=== PATIENT | male | born 1965 | race Caucasian/White ===

== ENCOUNTER 2021-04-03 10:00 | Outpatient (RCR) | payer OTHER, SELFPAY ==
--- NOTE | 2021-02-08 16:35 | PTOPEVAL ---
INITIAL PHYSICAL THERAPY EVALUATION and PLAN OF CARE Thank you for referring Jacob Butler to [facility].? Baljeet is scheduled to be seen for physical therapy? 2x/week for 4 weeks. Please review, sign, date and return this plan of care SHAHEED. I agree with and certify that the following plan of care is medically necessary. Referring Physician Date Admitting Provider: Attending Provider: Grupo Jc MD Referring Provider: *PT Outpatient Evaluation Start: 02/08/21 14:48 Freq: Status: Active Protocol: Document 02/08/21 14:48 TOMÁS (Rec: 02/08/21 16:32 TOMÁS [id number]) Therapy Assessment Status Assessment Status Assessment Status Evaluation Outpatient Past Medical History Past Medical History Source of Past Medical History Patient Cardiovascular History Hx Hypercholesterolemia Yes Hx Hypertension Yes Gastrointestinal History Hx Appendectomy Yes: 1986 Hx Pancreatitis Yes: 2012 Musculoskeletal History Hx Fractures Yes: L foot, L ribs - ORIF 2015, L clavicle-ORIF 2015, L finger fx Hx Joint Replacement Yes: L TKA 2018, revision 2020 Hx Orthopedic Surgery Yes: L ACL 1995 , bilat arthroscopies 1996 HEENT History Hx Ear Surgery Yes: R stapedectomy 1985,2013 Evaluation Information Problem Diagnosis L TKA 01/26/21 Onset 01/26/21 Subjective Information Initially May - Query Text:As Reported By Patient/ struggled with it - lots of Family pain and swelling - did PT, etc. Constant pain - got pinching etc. Lots of diagnostic intervention - unable to find source of pain. For revision - increased thickness of the software able to keep hardware - metal components. Feeling much better already - resumed exercises already. Did put on a knee brace that he had from the past. Bad day yesterday - didn't use as much ice - when he did - knee felt better . Changed dressing a few days ago. 40 ruperto. Diagnostic Tests X-Rays For This Problem Yes Other Tests For This Problem Yes Previous Treatments Previous Treatments For This Problem PT following initially TKA Prior Level of Function Activity Level (Last 3 Months) Occupation
--- NOTE | 2021-03-06 15:41 | PCPTNOTE ---
03/06/21 PHYSICAL THERAPY PROGRESS REPORT The above patient has completed a total number of 7 treatment sessions for L TKA since 02/08/21. Summary of Progress: Jacob has improved in both his L LE strength and ROM since starting PT services. He continues to demonstrate decreased L strength compared to R. He has improved in LEFS as well as WOMAC. He reports 5/10 pain this date stating that he did more activity over the weekend. He reports 1-2/10 pain at the end of therapy session this date. Recommendations: Jacob continues to present with decreased/asymmetrical LE strength and would benefit from skilled PT to address these deficits and assist him in improving his functional mobility. Thank you for referring Jacob Butler to [facility].? The patient is scheduled to be seen for therapy? 2x/week for 2-3 weeks.? Please review, sign, date and return this plan of care SHAHEED. I agree with and certify that the above recommended change(s) to the plan of care are medically necessary. ? Referring Physician?Date Admitting Provider: Attending Provider: erika merlos Referring Provider:
--- NOTE | 2021-03-24 12:35 | PCPTNOTE ---
Patient called & cancelled scheduled appointment this date due to not feeling well following COVID injection.
--- NOTE | 2021-04-03 16:51 | PTOPEVAL ---
PHYSICAL THERAPY DISCHARGE SUMMARY Thank you for referring Jacob Butler to [facility].? Baljeet has been seen for a total of 14 visits. Goals have been met and he is ready for d/c from PT to HEP. I agree with and certify that the following plan of care is medically necessary. Referring Physician Date Admitting Provider: Attending Provider: Grupo Jc MD Referring Provider: Therapy Assessment Status Assessment Status Assessment Status Discharge Evaluation Information Problem Diagnosis L TKA 01/26/21 Subjective Information Baljeet reports L knee is doing Query Text:As Reported By Patient/ okay - but having L ITB Family tightness. Needs to be careful on ladders. Also having occasional swelling of L knee occurring - will ice it . Pain Assessment Self Report Pain Assessment Left Knee(s) Reported Pain Level 2 Pain Frequency Continuous Other Pain Description nagging pain Lowest Pain Intensity 1 Greatest Pain Intensity 4 Lower Extremity Range of Motion Knee Range of Motion Left Knee Flexion Range of Motion - Active 125 Knee Extension Range of Motion - Active 2 Query Text: Lower Extremity Muscle Strength Testing Hip Strength Left Hip Flexion Strength 5 Normal Hip Extension Strength 5 Normal Hip Abduction Strength 5 Normal Hip Medial Rotation Strength 5 Normal Hip Lateral Rotation Strength 5 Normal Knee Strength Left Knee Flexion Strength 5 Normal Knee Extension Strength 5 Normal Muscle Length Testing Muscle Length Testing Wing's Test Hip Muscle Length (R) Mild Tightness Left Hamstring Length -25 Query Text:(90 - 90 Position) Gastrocnemius Length (R) WFL,(L) WFL Palpation Assessment Palpation Palpation tenderness present laterally at joint line, discomfort and tightness with distal L ITB, around fibular head - especially anteriorly, poseriorly - lateral tightness present Good patellar mobility Balance Assessment Time Up Go (TUG) Assistive Devices None Comments 8.03 seconds 5 Time Sit to Stand Time in Seconds 12.09 5 Time Sit to Stand Comments hands across chest Query Text:Normative Data: If Greater Than 15 Seconds, 74% Increase Risk for Recurrent Falls Gait Assessment Gait Pattern Assessment Other Gait Observations no obvious gait deviations observed Stair
== END 2021-04-06 16:07 | disposition home or self-care (01) ==
LOC: ANHHIPT 10:00
PROVIDERS: PCP Family Medicine
DX: Z47.1 Aftercare following joint replacement surgery (principal); T84.84XS Pain due to internal orthopedic prosthetic devices, implants and grafts, sequela; Z96.652 Presence of left artificial knee joint
CPT/HCPCS: 97110; 97140; 97161

== ENCOUNTER 2021-06-21 10:00 | Outpatient (RCR) | payer OTHER, SELFPAY ==
--- NOTE | 2021-05-25 15:38 | OTOPEVAL ---
OCCUPATIONAL THERAPY INITIAL EVALUATION: 05/25/2021 Thank you for referring Jacob Butler to [facility].? The patient is scheduled to be seen for therapy? 2x/week for 4 weeks. Please review, sign, date and return this plan of care SHAHEED. I agree with and certify that the following plan of care is medically necessary. Referring Physician Date Attending Provider: BRENDON Ashby Referring Provider: Sulaiman Becker *OT Outpatient Evaluation Start: 05/17/21 12:31 Freq: Status: Active Protocol: Document 05/25/21 14:14 KJL (Rec: 05/25/21 15:37 KJL [id number]) Therapy Assessment Status Assessment Status Assessment Status Evaluation Evaluation Information Problem Diagnosis ORIF of L wrist 05/01/2021 Onset 04/15/2021 Cause Fall Additional Evaluation Detail Patient fell off a horse which resulted in a colles fracture on 04/15/2021. Patient underwent ORIF on 05/01/2021 of L UE wrist post distal radius fracture. Subjective Information Patient is 3 weeks post ORIF, Query Text:As Reported By Patient/ and has experienced Family difficulties with gripping/ grasping, pain with squeezing objects. 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 Quick DASH score: 75, on 2020 Prior Level of Function Activity Level (Last 3 Months) Occupation signs and graphics Hand Dominance Right Activity of Daily Living Ability Independent Indoor/Home Mobility Independent Community Mobility Independent Stairs Ability Independent Functional Cognition (Planning, Shopping Independent , Taking Medications) Cooking Yes Cleaning Yes Laundry Yes Shopping Yes Driving Yes Home Setting Home Type House Living Situation With Adult Child,With Spouse Pain Assessment Timing of Pain Assessment Timing of Pain Assessment Assessment Pain Scale Pain Scale Used Numeric (1 - 10) Self Report Pain Assessment Left Wrist(s) Reported Pain Level 2 Pain Description Aching,Burning,Numbness, Soreness Lowest Pain Intensity 2 Greatest Pain Intensity 9 Pain S
--- NOTE | 2021-06-26 14:35 | OTOPEVAL ---
OCCUPATIONAL THERAPY RE-EVALUATION AND DISCHARGE 06/26/21 Jacob presents today, 8 weeks post op, with excellent return of ROM and strength in the left UE. He has no functional limitations at this time and is independent with all HEPs. No further skilled OT indicated. Thank you for referring Jacob Butler to [facility]. Please review, sign, date and return this D/C Note SHAHEED. I agree with and certify that the following plan of care is medically necessary. Referring Physician Date Referring Provider: Sulaiman Becker *OT Outpatient Evaluation Start: 05/17/21 12:31 Evaluation Information Problem Diagnosis ORIF of L wrist 05/01/2021 Onset 04/15/2021 Cause Fall Additional Evaluation Detail Patient presents today, 8 weeks post op, for OT re- evaluation. Jacob has participated in 6 therapy sessions focused on improving the strength and ROM of the left forearm, wrist, and hand. Subjective Information Patient reports everything is Query Text:As Reported By Patient/ better . Notes no functional Family limitations other than some residual weakness for which he has HEP to continue. Pain Assessment Timing of Pain Assessment Timing of Pain Assessment Re-assessment Pain Scale Pain Scale Used Numeric (1 - 10) Self Report Pain Assessment Left Wrist(s) Reported Pain Level 0 Lowest Pain Intensity 0 Greatest Pain Intensity 1 Pain Score Pain Score 0: Self Report Upper Extremity Range of Motion Elbow/Forearm Range of Motion Left Forearm Supination - Active 85 Forearm Pronation - Active 90 Elbow/Forearm Range of Motion Comments Elbow flexion/extension is WNL Wrist Range of Motion Left Reason Not Measured WNL/Right Wrist Flexion - Active 65 Wrist Extension - Active 65 Wrist Radial Deviation - Active 20 Wrist Ulnar Deviation - Active 20 Wrist Range of Motion Limitations Pain Wrist Range of Motion Comments Measurements at the initial evaluation: flexion 50* extension 50* RD 15* UD 15* Finger Range of Motion Left Reason Not Measured WNL/Left Thumb Range of Motion Left Reason Not Measured WNL/Left Upper Extremity Muscle Strength Testing Elbow/Forearm Left Elbow Flexion Strength 5 Normal Elbow Extension Strength 5 Normal Forearm Pronation Strength 5 Normal Forearm Supination Strength 5 Normal Wrist Strength Left
== END 2021-06-28 14:42 | disposition home or self-care (01) ==
LOC: ANHOT 10:00
PROVIDERS: PCP Family Medicine
DX: Z47.89 Encounter for other orthopedic aftercare (principal); S52.532D Colles' fracture of left radius, subsequent encounter for closed fracture with routine healing; V80.010D Animal-rider injured by fall from or being thrown from horse in noncollision accident, subsequent encounter
CPT/HCPCS: 97110; 97165

== ENCOUNTER 2023-10-29 22:26 | Emergency (ER) | payer OTHER, SELFPAY ==
[2023-10-29] VITALS (7 sets, daily range): BP systolic 121–140; BP diastolic 78–91; PULSE 73–86; RESP 14–23; TEMP 36.5; O2SAT 96–100
--- NOTE | ~2023-10-29 | CT_ITS ---
Non-contrast Head CT History: Head trauma Technique: Axial non-contrast imaging of the brain was performed. Dose reduction technique was used on this scan by utilizing automated exposure control and iterative reconstruction technique. The dose -length product (DLP) was 605.33 mGy-cm. Findings: There is no evidence of intracranial hemorrhage, mass lesion, or acute infarct. Brain par enchyma appears normal. The ventricles and subarachnoid spaces are normal in size. The calvarium ap pears normal. The visualized paranasal sinuses and mastoid air cells are clear. Impression: No significant abnormality seen. Reviewed, dictated and finalized at [facility]. TING ENGINEER Impression: No significant abnormality seen.
--- NOTE | ~2023-10-29 | CT_ITS ---
Noncontrast CT scan of the cervical spine Technique: Multiple contiguous axial [address] images of the cervical spine were obtained and rec onstructed in 2D sagittal and coronal planes on the acquisition scanner. Dose reduction technique was used on this scan by utilizing automated exposure control, adjustment of the mA and/or kV according to patient size. The dose-length product (DLP) was 541.48 mGy-cm. Clinical History: Pain Findings: No acute fractures or dislocations. 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 There is probable mild left neural foraminal narrowing a t C6-C7. The intervertebral disc spaces are preserved. No prevertebral soft tissue swelling. Impression: No acute fracture or subluxation. 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 Minimal degenerative change, as above. Reviewed, dictated and finalized at [facility]. ICE ASSOCIATE Impression: No acute fracture or subluxation. 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 Minimal degenerative change, as above.
--- NOTE | 2023-10-29 22:39 | ECG_ITS ---
Measurements Intervals Mayer Rate: 78 P: 27 IL: 162 QRS: 5 QRSD: 94 T: 4 QT: 363 QTc: 416 Interpretive Statements SINUS RHYTHM MINIMAL VOLTAGE CRITERIA FOR LVH, CONSIDER NORMAL VARIANT [MEETS CRITERIA IN ONE OF: R(aVL), S(V1), R(V5), R(V5/V6)+S(V1)] ABNORMAL ECG NO PREVIOUS ECG AVAILABLE FOR COMPARISON Electronically Signed On 10-30-2023 10:38:04 RESIDENT ENGINEER by Chevy Sheikh M.D.
[2023-10-29 23:15] LABS: Basophils Percent Auto 0.6 % (0.2-1.2); Eosinophils Absolute Auto 0.1 K/mm3 (0-0.3); Eosinophils Percent Auto 1.7 % (0-4.4); Hematocrit 42.4 % (42.0-52.0); Hemoglobin 14.3 g/dL (14.0-18.0); Immature Granulocyte Absolute 0.05 K/mm3 (0.00-0.031); Immature Granulocyte Percent A 0.8 % (0-0.5); Lymphocytes Absolute Auto 2.36 K/mm3 (0.9-3.2); Lymphocytes Percent Auto 36.1 % (18.3-44.2); Mean Corpuscular HGB Conc 33.7 g/dl (32-36); Mean Corpuscular Hemoglobin 30.2 pg (26-34); Mean Corpuscular Volume 89.5 fl (80-100); Mean Platelet Volume 10.1 fl (7.4-10.4); Monocytes Absolute Auto 0.6 K/mm3 (0.1-0.6); Monocytes Percent Auto 8.6 % (2.6-8.5); Neutrophils Absolute Auto 3.4 K/mm3 (1.3-6.7); Neutrophils Percent Auto 52.2 % (45.5-73.1); Platelet Count Result 266 k/mm3 (150-375); Red Blood Count 4.74 M/mm3 (4.6-6.20); Red Cell Distribution Width 12.5 % (11.5-14.5); White Blood Count 6.5 K/mm3 (4.5-10.0)
[2023-10-29 23:25] LABS: Alanine Aminotransferase 39 U/L (6-50); Albumin Level 4.6 g/dL (3.5-5.1); Alkaline Phosphatase 81 U/L (38-126); Anion Gap 16 mmol/L (8-16); Aspartate Amino Transferase 34 U/L (17-59); Bilirubin,Total 0.4 mg/dL (0.2-1.3); Blood Urea Nitrogen 15 mg/dL (9-20); Calcium 9.3 mg/dL (8.4-10.2); Carbon Dioxide 19 mmol/L (22-30); Chloride 102 mmol/L (98-107); Estimated CRCL calculation 103 ml/min; Estimated Glomerular Filt Rate > 60; Glucose 119 mg/dL (65-110); Sodium 137 mmol/L (137-145)
[2023-10-30 00:07] LABS: Troponin I < 0.012 ng/mL (0.000-0.034)
--- NOTE | 2023-10-30 00:23 | ED.SYNCOPE ---
HPI - Syncope General Chief Complaint: Syncope Stated Complaint: syncope Time Seen by Provider: 10/29/23 22:54 History of Present Illness HPI narrative: patient presents the emergency department from home by EMS. He had a syncopal episode prior to arrival. Patient was playing cards against community with his family. He started laughing very hard then cough and had a syncopal episode. Hit his face on the ground. Family notes that he had minimal urine loss and was unresponsive for a while. He notes that in the past he has had similar problems. His is concerned because the patient's brother passed out easily from seeing blood and ended up with a pacemaker. Related Data Allergies Allergy/AdvReac Type Severity Reaction Status Date / Time No Known Allergies Allergy Unverified 11/05/18 16:06 Review of Systems Review of Systems: Negative except what is documented in the [facility] Social History Social History Smoking status: Never smoker Exam Narrative: GENERAL: Well-appearing, well-nourished, and in no acute distress. HEAD: Normocephalic, abrasion to nose and forehead EYES: PERRLA and EOMI. ENT: Nares clear, no rhinorrhea or epistaxis. Mucous membranes moist. NECK: Supple. CHEST: Clear to auscultation. No respiratory distress. HEART: Regular rate and rhythm. ABDOMEN: Soft, nontender, nondistended. EXTREMITIES: Normal range of motion. No edema. SKIN: Warm, dry, no rash. NEURO: No focal deficits. Alert and oriented x3. PSYCH: Normal mood and affect. Course Vital Signs Vital signs: Vital Signs Temperature 36.5 C 10/29/23 22:35 Pulse Rate 73 10/29/23 22:35 Respiratory Rate 20 10/29/23 22:35 Blood Pressure 140/78 10/29/23 22:35 Pulse Oximetry 100 10/29/23 22:35 Oxygen Delivery Room Air 10/29/23 22:35 Temperature 36.5 C 10/29/23 22:35 Pulse Rate 73 10/29/23 22:35 Respiratory Rate 20 10/29/23 22:35 Blood Pressure 140/78 10/29/23 22:35 Pulse Oximetry 100 10/29/23 22:35 Oxygen Delivery Room Air 10/29/23 22:35 MDM - Syncope MDM Narrative Medical decision making narrative: head CT is negative for hemorrhage. EKG sinus 70 no signs of ischemia. vital signs stable. patient has been asymptomatic since arrival. Will plan for discharge to home. History consistent with vasovagal syncope secondary to coughing Lab Data 10/29/23 23:08 10/29/23 23:08 Labs: Lab Results 10/29/23 Range/Units 23:08 WBC 6.5 (4.5-10.0) K/mm3 RBC 4.74 (4.6-6.20) M/mm3 Hgb 14.3 (14.0-18.0) g/dL Hct 42.4 (42.0-52.0) % MCV 89.5 (80-100) fl MCH 30.2 (26-34) pg MCHC 33.7 (32-36) g/dl RDW 12.5 (11.5-14.5) % Plt Count 266 (150-375) k/mm3 MPV 10.1 (7.4-10.4) fl Immature Gran % (Auto) 0.8 H (0-0.5) % Neut % (Auto) 52.2 (45.5-73.1) % Lymph % (Auto) 36.1 (18.3-44.2) % [place] % (Auto) 8.6 H (2.6-8.5) % Eos % (Auto) 1.7 (0-4.4) % Baso % (Auto) 0.6 (0.2-1.2) % Lymph # (Auto) 2.36 (0.9-3.2) K/mm3 [place] # (Auto) 0.6 (0.1-0.6) K/mm3 Eos # (Auto) 0.1 (0-0.3) K/mm3 Baso # (Auto) 0.0 (0.0-0.1) K/mm3 Abs Immat Gran (auto) 0.05 H (0.00-0.031) K/mm3 Absolute Neuts (auto) 3.4 (1.3-6.7) K/mm3 Absolute Nucleated RBC 0.0 (0.0-0.012) K/mm3 Nucleated RBC % 0.0 (0.0-0.2) % Sodium 137 (137-145) mmol/L Potassium 4.0 (3.4-5.0) mmol/L Chloride 102 (98-107) mmol/L Carbon Dioxide 19 L (22-30) mmol/L Anion Gap 16 (8-16) mmol/L BUN 15 (9-20) mg/dL Creatinine 0.90 (0.7-1.3) mg/dL Estim Creat Clear Calc 103 ml/min Estimated GFR > 60 (59 - ) Glucose 119 H (65-110) mg/dL Calcium 9.3 (8.4-10.2) mg/dL Total Bilirubin 0.4 (0.2-1.3) mg/dL AST 34 (17-59) U/L ALT 39 (6-50) U/L Alkaline Phosphatase 81 (38-126) U/L Troponin I < 0.012 (0.000-0.034) ng/mL Total Protein 8.0 (6.3-8.2) g/dL Albumin 4.6 (3.5-5.1) g/dL Discharge Plan Discharge Cli
[2023-10-30 00:30] VITALS: PULSE 91; RESP 20; O2SAT 97
[2023-10-30 01:30] VITALS: PULSE 88; RESP 20; O2SAT 93
[2023-10-30 03:12] LABS: Troponin I < 0.012 ng/mL (0.000-0.034)
== END 2023-10-30 03:54 | disposition home or self-care (01) ==
PROVIDERS: Emergency Provider Emergency Medicine; PCP Family Medicine
DX: R55 Syncope and collapse (principal); S09.90XA Unspecified injury of head, initial encounter; W19.XXXA Unspecified fall, initial encounter
CPT/HCPCS: 36415; 70450; 72125; 80053; 84484; 85025; 93005; 99284